=== PATIENT | female | born 1935 | race Caucasian/White ===

== ENCOUNTER 2022-04-22 10:21 | Emergency (ER) | payer MEDICARE, SELFPAY ==
[2022-04-22 10:39] VITALS: BP 130/82; PULSE 107; RESP 18; TEMP 36.5; O2SAT 97
--- NOTE | 2022-04-22 10:57 | ED.FEMALEGU ---
HPI - Female Genitourinary General Chief complaint: Urogenital-Female Stated complaint: Possible UTI Source: patient and family Mode of arrival: ambulatory History of Present Illness HPI Narrative: This is a 87-year-old female who presented to urgent care with complaints of left side back pain. According to her daughter she has a history of having urinary tract infection she does have a history of dementia. Patient also notes that when she urinates it is touchy. Unclear what that means. She also notes the patient had a fever 102 and was given [id number]. There are also unsure of how long she has had symptoms she was previously at her son's house and help return home to her daughter's home. The patient denies SOB, CP, palpitation, extremity numbness, lightheadedness, dizziness, constipation, diarrhea, chills/. Related Data Allergies Allergy/AdvReac Type Severity Reaction Status Date / Time pcn Allergy Mild Unknown Uncoded 04/22/22 11:12 Review of Systems Review of Systems: A 14 organ system Review of Systems was performed and pertinent positives included in the HPI, otherwise remaining ROS is negative. Exam Narrative: GENERAL: This is a well-nourished, well-developed patient, in no apparent distress. HEAD: normocephalic, atraumatic. EYES: PERRL. Sclera clear/white. Vision is grossly intact. EARS: External ears normal, auditory canals clear and without drainage, TMs normal without perforation. Hearing grossly intact. NOSE: External nose normal with no obvious nasal discharge, nares without redness, no rhinorrhea. THROAT: Mucous membranes moist, posterior pharynx clear. NECK: Neck supple, non-tender without lymphadenopathy, masses or thyromegaly. CARDIOVASCULAR: Regular rate and rhythm without murmurs, gallops, or rubs. RESPIRATORY: Clear to auscultation. Breath sounds equal bilaterally. No wheezes, rales, or rhonchi. GASTROINTESTINAL: Abdomen soft, non-tender, nondistended. Bowel sounds are active. No hepato-splenomegaly, or palpable masses. No guarding. SKIN: warm, intact with no suspicious lesions or rash, good texture and turgor. NEURO: awake, alert, and oriented to person, place and time. There were no obvious focal neurologic abnormalities. EXTREMITIES: Normal range of motion. No edema. No calf tenderness. Course Course Emergency Course: Patient will be treated for urinary tract infection with Cipro 500 mg b.i.d. x7 days Level of Care: Express Care Visit Vital Signs Vital signs: Vital Signs Temperature 97.7 F 04/22/22 10:39 Pulse Rate 107 H 04/22/22 10:39 Respiratory Rate 18 04/22/22 10:39 Blood Pressure 130/82 04/22/22 10:39 Pulse Oximetry 97 04/22/22 10:39 Oxygen Delivery Room Air 04/22/22 10:39 Temperature 97.7 F 04/22/22 10:39 Pulse Rate 107 H 04/22/22 10:39 Respiratory Rate 18 04/22/22 10:39 Blood Pressure 130/82 04/22/22 10:39 Pulse Oximetry 97 04/22/22 10:39 Oxygen Delivery Room Air 04/22/22 10:39 MDM - Female Genitourinary MDM Narrative Medical decision making narrative: Patient UTI positive for nitrate and leukocytes Differential Diagnosis Differential diagnosis: Likely urinary tract infection and vaginitis Lab Data Labs: Urine Glucose Negative Reference Range: Negative Urine Bilirubin Negative Reference Range: Negative Urine Ketone Negative Reference Range: Negative Urine Specific [place] 1.015 Reference Range:1.001-1.035 Urine Blood Trace Reference Range: Negative * * Urine pH 5.5 Reference Range:
== END 2022-04-22 11:07 | disposition home or self-care (01) ==
PROVIDERS: Emergency Provider Nurse Practitioner
DX: N39.0 Urinary tract infection, site not specified (principal)
CPT/HCPCS: 81003; 87077; 87086; 87186; 99203; G0463

== ENCOUNTER 2022-05-17 17:09 | Outpatient (CLI) | payer MEDICARE, SELFPAY ==
--- NOTE | ~2022-05-17 | XR_ITS ---
EXAM: XR hip LT min 2V DATE: 05/17/2022 17:37 HISTORY: R29.898 -symptoms and signs involving the musculos,NO INJURY . COMPARISON: None available. FINDINGS: Severely decreased mineralization. No fracture or dislocation. No lytic or blastic lesion. Severe lower lumbar degenerative disc disease. Mild degenerative change in the left hip and pubic sy mphysis. No erosion or periosteal change. Arterial calcification. Pelvic phleboliths. IMPRESSION: Mild left hip osteoarthritis. 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
== END 2022-05-17 17:10 | disposition home or self-care (01) ==
PROVIDERS: PCP Family Medicine; Visit Provider Family Medicine
DX: M16.12 Unilateral primary osteoarthritis, left hip (principal)
CPT/HCPCS: 73502

== ENCOUNTER 2022-05-19 11:07 | Emergency (ER) | payer MEDICARE, SELFPAY ==
[2022-05-19] VITALS (21 sets, daily range): BP systolic 92–111; BP diastolic 64–82; PULSE 96–130; RESP 16–31; TEMP 36.4; O2SAT 93–98
--- NOTE | ~2022-05-19 | CT_ITS ---
Non-contrast Head CT History: Right frontal swelling, nontraumatic Technique: Axial non-contrast imaging of the brain was performed. Dose reduction technique was used on this scan by utilizing automated exposure control and iterative reconstruction technique. The dose -length product (DLP) was 605.33 mGy-cm. Findings: There is a destructive lesion of the right frontal bone, involving extent of about 4.5 cm i n length, with surrounding soft tissue mass, predominantly superficial to the calvarium. Osseous dest ructive change extends to the lateral wall of the right orbit and the anterior most aspect of the rig ht temporal bone. No gross invasion of the brain parenchyma identified. No intracranial hemorrhage identified. No acute infarct identified. Ventricles and subarachnoid space s are mildly dilated. There are low attenuation regions in the periventricular white matter, compatib le with chronic microvascular ischemic change. The visualized paranasal sinuses and mastoid air cells are clear. Impression: Destructive osseous lesion with surrounding soft tissue mass centered at the right frontal bone, with extension to the lateral wall the right orbit in the anteroseptal aspect of the right temporal bone. 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 Atrophy and chronic ischemic changes, as noted above. Reviewed, dictated and finalized at location . 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 Atrophy and chronic ischemic changes, as noted above.
--- NOTE | ~2022-05-19 | CT_ITS ---
EXAMINATION: CT chest abdomen pelvis wo con DATE: 05/19/2022 15:25 INDICATION: Malignancy presenting with hypotension and bradycardia. TECHNIQUE: Computed tomography (CT) of the chest, abdomen, and pelvis was performed without intraveno us contrast. Automated exposure control and iterative reconstruction technique were employed. The dos e-length product was 241.02 mGy-cm. COMPARISON: None FINDINGS: CHEST CT: Severe emphysema. Conclusion of the right lower lobe bronchus and multiple right lower lobar segmenta l and subsegmental bronchi consistent with mucous plugging although an obstructing proximal endobronc hial lesion cannot be excluded. This results in partial collapse of the right lower lobe with depende nt predominant consolidation and sagittal and loss of posterior retraction of the major fissure. Ther e is a more masslike density in the posterior right upper lobe measuring 8.0 x 6.0 cm which nodular d ensity slightly more lateral at the posterior right upper lobe. Exerts mass effect upon the posterior wall of the right mainstem bronchus. There is a second approximately 2 cm nodular opacity slightly m ore lateral in the posterior right upper lobe. Calcified right upper lobe nodules and calcified right hilar lymph nodes consistent with old granulomatous disease. Tiny right pleural effusion. No pneumot horax or left-sided pleural effusion. Heart size is normal. Atherosclerotic coronary artery calcifica tion is. Aortic valve calcific location. Ectatic ascending thoracic aorta measuring up to 4.0 cm. No pathologically enlarged thoracic lymphadenopathy. Small sliding-type hiatal hernia. Mild thoracic kyp hosis with moderate spondylosis. Chronic appearing mild anterior wedging of a couple mid thoracic kenyon tebral bodies. 2.0 cm lytic bone lesion at the manubrium which erodes through the anterior cortex. Is a second 1 cm lytic lesion more caudally at the right side of the sternum. ABDOMEN/PELVIS CT: Approximately 1 cm hypodense lesion in segment 2 of liver. Multiple calcified gallstones within the o therwise normal-appearing gallbladder. No intra or extrahepatic biliary ductal dilation. Spleen is no rmal. 2.7 x 2.4 cm mass situated along the cephalad margin of the pancreatic body and the lesser curv ature of the stomach which could represent either a primary pancreatic neoplasm, an exophytic gastric lesion or metastatic gastrohepatic lymph node. There is suggestion of some wall thickening in the pr oximal gastric body. Thoracic soft tissue density 2.6 x 2.2 cm right adrenal mass. Suggestion of a co llision lesion at the left adrenal gland with 2.5 cm mass with crescentic region of low attenuation c onsistent with adenoma surrounding a 1.5 cm nodular region of soft tissue density at the posterior as pect of the mass. Small parapelvic cysts at both kidneys. No urolithiasis or hydronephrosis. Bladder is normal. Extensive colonic diverticulosis with descending and sigmoid colon predominance. The appen henri is not visualizedwhich could be due to prior appendectomy or sequela of streak artifact likely re lated to some bowel motion at the level of the cecum. No pericecal inflammatory stranding to suggest acute appendicitis. No dilated bowel to suggest obstruction. Partially decompressed bladder, the norm al atrophic for age uterus and bilateral adnexa are unremarkable. No free intraperitoneal gas or flui d. No other evident pathologically enlarged abdominal or pelvic lymphadenopathy. Mild to moderate lum bar dextroscoliosis with severe spondylosis. L5 spondylolysis with bilateral pars intra-articular is defects and 12 mm anterolisthesis of L5 on S1. 12 mm subtle lytic bone lesion which erodes the medial cortex posterosuperior to the right acetabulum. A prominent 2.3 cm lytic bone lesion in the anterior left supra-acetabular region. IMPRESSION: 1. Masslike consolidation in the posterior right upper lobe which could be due to malign
--- NOTE | ~2022-05-19 | XR_ITS ---
XR chest 2V DATE: 05/19/2022 12:15 INDICATION: Hypotension. Weakness. TECHNIQUE: AP views and lateral view COMPARISON: None FINDINGS: Heart size appears within normal range. Is aortic calcification and ectasia and unfolding. Mild infiltrate or atelectasis is noted in the lower lung zones. No pleural effusion or pulmonary vas cular congestion or pneumothorax is detected. Osteopenia. Thoracolumbar scoliosis, thoracic kyphosis and degenerative change of the thoracic and lumbar spine. IMPRESSION: Mild infiltrate or atelectasis in the lower lungs Reviewed, dictated and finalized at location B. TELEPHONE TRIAGE
--- NOTE | 2022-05-19 11:19 | ECG_ITS ---
Measurements Intervals [place] Rate: 130 P: 57 MO: 146 QRS: 50 QRSD: 88 T: 46 QT: 382 QTc: 562 Interpretive Statements SINUS TACHYCARDIA DELAYED PRECORDIAL R/S TRANSITION BORDERLINE T WAVE ABNORMALITY- ANTERIOR LEADS BASELINE ARTIFACT- I, II, III, AVR, AVL ABNORMAL ECG NO PREVIOUS ECG AVAILABLE FOR COMPARISON Electronically Signed On 05-19-2022 11:25:57 [employer] by Donald Hartley D.O.
[2022-05-19 11:36] LABS: Basophils Absolute Auto 0.1 K/mm3 (0.0-0.1); Basophils Percent Auto 0.8 % (0.2-1.2); Eosinophils Absolute Auto 0.5 K/mm3 (0-0.3); Eosinophils Percent Auto 4.6 % (0-4.4); Hematocrit 43.3 % (37.0-47.0); Hemoglobin 13.4 g/dL (12.0-15.0); Immature Granulocyte Absolute 0.07 K/mm3 (0.00-0.031); Immature Granulocyte Percent A 0.6 % (0-0.5); Lymphocytes Absolute Auto 0.88 K/mm3 (0.9-3.2); Lymphocytes Percent Auto 7.4 % (18.3-44.2); Mean Corpuscular HGB Conc 30.9 g/dl (32-36); Mean Corpuscular Hemoglobin 27.5 pg (26-34); Mean Corpuscular Volume 88.9 fl (80-100); Monocytes Absolute Auto 0.8 K/mm3 (0.1-0.6); Neutrophils Absolute Auto 9.5 K/mm3 (1.3-6.7); Neutrophils Percent Auto 79.6 % (45.5-73.1); Platelet Count Result 225 k/mm3 (150-375); Red Blood Count 4.87 M/mm3 (4.2-5.4); Red Cell Distribution Width 15.1 % (11.5-14.5); White Blood Count 11.9 K/mm3 (4.5-10.0)
[2022-05-19 11:47] LABS: Alanine Aminotransferase 18 U/L (6-35); Albumin Level 3.7 g/dL (3.5-5.1); Alkaline Phosphatase 93 U/L (38-126); Anion Gap 7 mmol/L (8-16); Aspartate Amino Transferase 29 U/L (14-36); Bilirubin,Total 0.6 mg/dL (0.2-1.3); Blood Urea Nitrogen 12 mg/dL (7-17); Carbon Dioxide 25 mmol/L (22-30); Chloride 102 mmol/L (98-107); Estimated Glomerular Filt Rate > 60; Glucose 148 mg/dL (65-110); Potassium 3.9 mmol/L (3.4-5.0); Sodium 134 mmol/L (137-145)
[2022-05-19 12:58] LABS: Appearance Urine Clear (Clear); Bilirubin Urine 2+ (Negative); Blood Urine Negative (Negative); Color Urine Amber (Yellow); Glucose Urine UA Negative (Negative); Ketones Urine Trace mg/dL (Negative); Leukocyte Esterase Ur Negative LEU/UL (Negative); Nitrate Urine Negative (Negative); Protein Urine 1+ mg/dL (Negative); Specific Grav Ur >= 1.030 (1.001-1.035); Urobilinogen Urine 0.2 mg/dL (<2.0)
[2022-05-19 13:19] LABS: Bacteria Urine Trace /hpf; Hyaline Casts Urine 50+ /lpf; Mucus Urine Heavy /lpf; Squamous Epithelial Cell Urine Rare /hpf (Few); WBC Urine 0-3 /hpf
[2022-05-19 13:24] LABS: Add Urine Microscopic? YES
--- NOTE | 2022-05-19 13:38 | ED.GENADULT ---
HPI - General Adult General Chief complaint: Recheck/Abnormal Lab/Rx Stated complaint: low blood pressure Time Seen by Provider: 05/19/22 13:33 Source: patient and family Limitations: no limitations History of Present Illness HPI narrative: Patient is 87 years old white female referred to our emergency room from her family physician office because of low blood pressure 70/50. Patient was asymptomatic at that time. She denies any lightheadedness, headache, shortness of breath, chest pain, dizziness. Patient went to see her family physician today because of progressive pain at the left lower leg, scheduled for MRI of the left lower extremity in few days. The daughter is telling me that patient had swelling of the right frontal area noticed to weeks ago, nontender, no trauma. Patient was seen by an supervisor powdered sugar 1 week ago because right ptosis Related Data Home Medications Medication Instructions Recorded Confirmed donepezil 10 mg tablet 10 mg PO HS 04/22/22 05/19/22 acetaminophen 325 mg capsule 325 mg PO Q6H PRN 05/07/22 05/19/22 (Tylenol) lactobacillus combination no.9 4 4,000 mmu cells PO DAILY 05/07/22 05/19/22 billion cell capsule (Adult 50 Plus Probiotic) mirtazapine 30 mg tablet 15 mg PO DAILY 05/07/22 05/19/22 multivitamin (Daily Multi-Vitamin 1 tablet PO DAILY 05/07/22 05/19/22 tablet) Allergies Allergy/AdvReac Type Severity Reaction Status Date / Time Penicillins AdvReac Mild Hallucinati Verified 05/19/22 14:28 ng Review of Systems Review of Systems: All systems reviewed & are unremarkable except as noted in HPI and below PMFSH Past Medical History Medical History Dementia Family History Family History Father IBS (irritable bowel syndrome) Social History Social History Smoking status: Never smoker Tobacco type: cigarettes Alcohol intake: current Alcohol use details: occasionally Substance use: never Substance use type: does not use Lack of Transportation: No Lack of Food: Never True Current Housing: I Have Housing Concerned About Future Housing: No Difficulty Paying Gas/Electric Bills: No Difficulty Paying for Meds: No Currently Unemployed: No Education: Master's Degree or Higher Difficulty w/ Childcare or Family Care: No Gender identity (if verbalized by the patient): Female Agree to blood products: Yes Exam Narrative: General appearance: Well-developed, well-nourished Skin: Normal color Head: Normocephalic, nontraumatic, right frontal swelling, no bruises, no tenderness, firm in consistency. Eyes: Clear conjunctiva, right ptosis ENT: Oropharynx normal, ears normal, nose normal Neck: Supple, nontender Chest and respiratory: Airway patent, no respiratory distress, no accessory muscle use Heart: Regular rate/rhythm Abdomen: Soft, nontender, no organomegaly, quiet bowel sounds Vascular: Normal peripheral pulses, normal capillary refill. Musculoskeletal: Normal range of motion, nontender back Neurologic: Alert and oriented to her name only Course Consultations Consultation #1: Date: 05/19/22 Time: 16:47 Vital Signs Vital signs: Vital Signs Temperature 36.4 C L 05/19/22 11:16 Pulse Rate 130 H 05/19/22 11:16 Respiratory Rate 20 05/19/22 11:16 Blood Pressure 92/64 L 05/19/22 11:16 Pulse Oximetry 93 05/19/22 11:16 Temperature 36.4 C L 05/19/22 11:16 Pulse Rate 105 H 05/19/22 13:46 Respiratory Rate 31 H 05/19/22 13:46 Blood Pressure 100/70 05/19/22 13:45 Pulse Oximetry 98 05/19/22 13:17 Medical Decision Making MDM Narrative Medical decision making narrative: Patient referred
[2022-05-19 14:21] LABS: INR 1.2; Prothrombin Time 14.3 Seconds (11.1-14.7)
[2022-05-19 14:22] LABS: Lactic Acid Reflex 1.5 mmol/L (0.7-2.0); Partial Thromboplastin Time 27.1 SECONDS (22.3-36.8)
[2022-05-19 14:26] LABS: CRP 5.5 mg/dL (<1.0)
--- NOTE | 2022-05-19 17:30 | PCCCNOTE ---
Met w/ patient and family in ER room 2, educated on hospice vs palliative care and provided resource list of different agencies. No additional questions, updated bedside RN Rohan.
== END 2022-05-19 17:56 | disposition home or self-care (01) ==
PROVIDERS: Family Medicine; Emergency Provider Emergency Medicine; PCP Family Medicine
DX: C78.00 Secondary malignant neoplasm of unspecified lung (principal); C78.89 Secondary malignant neoplasm of other digestive organs; C79.51 Secondary malignant neoplasm of bone; D72.829 Elevated white blood cell count, unspecified; F03.90 Unspecified dementia, unspecified severity, without behavioral disturbance, psychotic disturbance, mood disturbance, and anxiety; E78.5 Hyperlipidemia, unspecified; Z79.899 Other long term (current) drug therapy
CPT/HCPCS: 36415; 70450; 71046; 71250; 74176; 80053; 81001; 83605; 85025; 85610; 85730; 86140; 87040; 87147; 87181; 87186; 93005; 99284